=== PATIENT | female | born 1955 | race Caucasian/White ===

== ENCOUNTER 2020-12-27 14:03 | Outpatient (REF) | payer BC, SELFPAY ==
--- NOTE | 2020-12-27 | MM_ITS ---
EXAMINATION: MM SCREENING DIGITAL BREAST TOMOSYNTHESIS, BILATERAL CLINICAL INFORMATION: Screening. Asymptomatic. The lifetime risk of breast cancer based on the Tyrer-Cuzick Model is 5%. COMPARISON: Mammography: 12/22/2019, 12/16/2018, 12/10/2017 TECHNIQUE: Digital breast tomosynthesis is performed in both the craniocaudal and mediolateral oblique views along with computer-aided detection (CAD). Synthesized 2D images are generated from the tomosynthesis. FINDINGS: There are scattered areas of fibroglandular density (ACR BI-RADS breast composition Category b). Breast tissue borders on heterogeneously dense in the anterior breasts. Parenchymal pattern is similar to prior studies. There is no developing density or interval mass or architectural abnormality. No abnormal calcifications. Left axillary node stable. Small intramammary node posterior upper outer right breast stable. Skin contours are smooth. MM/MM tomosynthesis screening BI IMPRESSION: No significant changes from prior exams. ASSESSMENT: BI-RADS 2: Benign RECOMMENDATION: Routine annual mammography screening. This patient's information was entered into a reminder system with a target due date for their next mammogram.
== END 2020-12-27 14:04 | disposition home or self-care (01) ==
LOC: HO.MAMMO 14:03
PROVIDERS: PCP Internal Medicine; Visit Provider Internal Medicine
DX: Z12.31 Encounter for screening mammogram for malignant neoplasm of breast (principal)
CPT/HCPCS: 77063; 77067

== ENCOUNTER 2022-03-01 11:44 | Outpatient (REF) | payer MEDICARE, OTHER, SELFPAY ==
--- NOTE | ~2022-03-01 | MM_ITS ---
EXAMINATION: MM SCREENING DIGITAL BREAST TOMOSYNTHESIS, BILATERAL CLINICAL INFORMATION: Screening. Asymptomatic. The lifetime risk of breast cancer based on the Tyrer-Cuzick Model is 4.3%. COMPARISON: Mammography: December 27, 2020 and studies dating back to July 28, 2012 TECHNIQUE: Digital breast tomosynthesis is performed in both the craniocaudal and mediolateral oblique views along with computer-aided detection (CAD). Synthesized 2D images are generated from the tomosynthesis. FINDINGS: There are scattered areas of fibroglandular density (ACR BI-RADS breast composition Category b). There are no significant masses, abnormal calcifications, or other abnormalities. MM/MM tomosynthesis screening BI IMPRESSION: There are no significant changes from prior study. ASSESSMENT: BI-RADS 1: Negative RECOMMENDATION: Routine annual mammography screening. This patient's information was entered into a reminder system with a target due date for their next mammogram.
== END 2022-03-01 11:45 | disposition home or self-care (01) ==
LOC: HO.MAMMO 11:44
PROVIDERS: PCP Internal Medicine; Visit Provider Nurse Practitioner Adult Health
DX: Z12.31 Encounter for screening mammogram for malignant neoplasm of breast (principal)
CPT/HCPCS: 77063; 77067

== ENCOUNTER 2023-03-15 12:28 | Outpatient (REF) | payer MEDICARE, OTHER, SELFPAY ==
--- NOTE | ~2023-03-15 | MM_ITS ---
EXAMINATION: MM SCREENING DIGITAL BREAST TOMOSYNTHESIS, BILATERAL CLINICAL INFORMATION: Screening. Asymptomatic. The lifetime risk of breast cancer based on the Tyrer-Cuzick Model is 4.1%. COMPARISON: Mammography: 03/01/2022 and studies dating back to 07/28/2012. . TECHNIQUE: Digital breast tomosynthesis is performed in both the craniocaudal and mediolateral oblique views along with computer-aided detection (CAD). Synthesized 2D images are generated from the tomosynthesis. FINDINGS: There are scattered areas of fibroglandular density (ACR BI-RADS breast composition Category b). There is a stable parenchymal pattern of the right breast with no new abnormal dominant masses or suspicious grouping of microcalcifications identified. Within the anterior aspect of the left breast on mediolateral oblique projection there is an asymmetric density for which spot compression film is recommended. I do not see a correlate craniocaudal view. MM/MM tomosynthesis screening BI IMPRESSION: Left breast density for further evaluation. ASSESSMENT: BI-RADS 0: Incomplete - Need Additional Imaging Evaluation. RECOMMENDATION: 1. Additional views of the left breast. 2. Targeted ultrasound if warranted after review of the additional views. 3. Radiology department staff will contact the patient for additional imaging. This patient's information was entered into a reminder system with a target due date for their next mammogram.
== END 2023-03-15 12:29 | disposition home or self-care (01) ==
LOC: HO.MAMMO 12:28
PROVIDERS: PCP Nurse Practitioner Family; Visit Provider Nurse Practitioner Family
DX: Z12.31 Encounter for screening mammogram for malignant neoplasm of breast (principal)
CPT/HCPCS: 77063; 77067

== ENCOUNTER 2023-03-26 07:53 | Outpatient (REF) | payer MEDICARE, OTHER, SELFPAY ==
--- NOTE | ~2023-03-26 | MM_ITS ---
EXAMINATION: MM DIAGNOSTIC DIGITAL BREAST TOMOSYNTHESIS, LEFT CLINICAL INFORMATION: Recall from screening for parenchymal asymmetry anterior left breast on MLO view, suspected summation artifact. COMPARISON: Prior mammography exams including most recent 03/15/2023. TECHNIQUE: Digital breast tomosynthesis is performed. 2D images are generated from the tomosynthesis. The following views are obtained: Spot MLO, standard ML. FINDINGS: There are scattered areas of fibroglandular density (ACR BI-RADS breast composition Category b). The additional views show fibroglandular densities similar to prior studies. There is no developing density or interval mass or architectural abnormality. No significant changes. Results are discussed with the patient at time of visit. MM/MM tomosynthesis added views L IMPRESSION: Additional views show no significant changes from prior studies. ASSESSMENT: BI-RADS 1: Negative RECOMMENDATION: Routine annual mammography screening. This patient's information was entered into a reminder system with a target due date for their next mammogram.
== END 2023-03-26 07:54 | disposition home or self-care (01) ==
LOC: HO.MAMMO 07:53
PROVIDERS: Visit Provider Nurse Practitioner Family
DX: R92.8 Other abnormal and inconclusive findings on diagnostic imaging of breast (principal); R92.2 Inconclusive mammogram
CPT/HCPCS: 77061; 77065

== ENCOUNTER 2024-03-30 13:17 | Outpatient (REF) | payer MEDICARE, OTHER, SELFPAY ==
--- NOTE | ~2024-03-30 | MM_ITS ---
EXAMINATION: MM SCREENING DIGITAL BREAST TOMOSYNTHESIS, BILATERAL CLINICAL INFORMATION: Screening. Asymptomatic. COMPARISON: Mammography: This study is compared with prior exams dating back to 2019. TECHNIQUE: Digital breast tomosynthesis is performed in both the craniocaudal and mediolateral oblique views along with computer-aided detection (CAD). Synthesized 2D images are generated from the tomosynthesis. FINDINGS: There are scattered areas of fibroglandular density (ACR BI-RADS breast composition Category b). There are no significant masses, abnormal calcifications, or other abnormalities. Few, bilateral benign calcifications are present. MM/MM tomosynthesis screening BI IMPRESSION: No mammographic evidence of malignancy. ASSESSMENT: BI-RADS BI-RADS 2 - Benign Findings RECOMMENDATION: Routine annual mammography screening. 1 year F/U This examination should not preclude the clinical evaluation of a suspicious palpable abnormality. This patient's information was entered into a reminder system with a target due date for their next mammogram.
== END 2024-03-30 13:18 | disposition home or self-care (01) ==
LOC: HO.MAMMO 13:17
PROVIDERS: PCP Nurse Practitioner Family; Visit Provider Nurse Practitioner Family
DX: Z12.31 Encounter for screening mammogram for malignant neoplasm of breast (principal)
CPT/HCPCS: 77063; 77067

== ENCOUNTER → 2024-03-30 13:30 | Outpatient (BNV) | payer MEDICARE, OTHER, SELFPAY | PROVIDERS: PCP Nurse Practitioner Family; Visit Provider Radiology Diagnostic Radiology | DX: Z12.31 Encounter for screening mammogram for malignant neoplasm of breast (principal) | CPT/HCPCS: 77063; 77067 ==

== ENCOUNTER 2025-04-20 14:11 | Outpatient (REF) | payer MEDICARE, OTHER, SELFPAY ==
--- OUTSIDE RECORDS SUMMARY | 2025-04-20 15:39 | XMS_ITS | Data Portability ---
Author Organization [place] - [facility], [facility] Address [address] [place] [address] Assessment Encounter Date Assessment Date Assessment LastModified by Organization Details LastModified Time 01/20/2025 01/20/2025 69-year-old female returns today in follow-up status post left carpal tunnel release and left first CMC arthroplasty with EPB transfer on January 07, 2025 who is overall doing well. Sutures removed Steri-Strips were reapplied. She will transition to a thumb spica cast, short a short with IP joint free with MP joint slightly flexed. Follow-up in 4 weeks time for recheck and likely transition to occupational therapy and removal of K wire. Not available 01/20/2025 15:15:00 02/18/2025 02/18/2025 69-year-old female returns today in follow-up status post left carpal tunnel release and left first CMC arthroplasty with EPB transfer on January 07, 2025 who is overall doing well. Her pin is removed today without difficulty and light dressing applied thereafter. She will transition occupational therapy for custom molded thumb spica orthosis, range of motion only for the first 2 weeks then incorporate progressive strengthening. Follow-up in weeks time as previously arranged, sooner if required Not available 02/18/2025 13:37:52 Plan of Treatment Reminders Order Date Submit Date Provider Last Modified By Organization Details Last Modified Time Details Appointments None recorded. Lab None recorded. Referral occupationa l therapist referral - Diagnosis:s tatus post left carpal tunnel release and left first CMC arthroplast y with EPB transfer on January 075Custom molded orthosis: noneTreatme nt: continue current treatment until plateau 2024 025 [email or web address] Not available 09:40:09 occupationa l therapist referral - custom spica orthosis ROM START IN 2 WEEKS INCORPORATE STRENTHENIN G 2024 025 [email or web address] Not available 10:21:57 Procedures None recorded. Surgeries arthroplast y, interpositi on/intercar pal/CMC joints (SURG) 2023 025 [email or web address] Not available 08:34:48 Imaging electromyog misael + nerve conduction study - Diagnosis: LUE EVALUATE BRACHIAL PLEXUS CARPAL AND CUBITAL TUNNELS AND CERVICAL RADICULOPAT HY, please schedule with or Dr.Marinez- Abreu 2023 024 [email or web address] [facility] [address] [place] [address], [place], [address], 4 15:13:39 Medication Orders None recorded. Patient TargetsNo targets recorded. Patient Instructions Encounter Date Encounter Id Patient Instructions Last Modified By Organization Details Last Modified Time 01/20/[id number] application of cast, thumb spica* - room 111 Right Shorty Short thumb spica cast- IPJ reff; MP slightly flexed Not available 01/20/2025 16:36:34 02/18/[id number] cast removal* - rm 115 cast off Not available 02/18/2025 14:02:42 Reason for Referral Occupational Therapist Refer ral for Osteoarthrosis of the carpometacarpal joint of the thumb custom spica orthosis ROM START IN 2 WEEKS INCORPORATE STRENTHENING Referring Physician: Ismael Gutierrez, Orthopedic Surgery, Encounter Date: 02/18/2025 Occupational Therapist Refer ral for Surgical follow-up Diagnosis:status post left carpal tunnel release and left first CMC arthroplasty with EPB transfer on January 075Custom molded orthosis: noneTreatment: continue current treatment until plateau Referring Physician: Tyron Aguirre, Orthopedic Surgery, Encounter Date: 03/31/2025 Problems Name Problem SNOMED Code Status Onset Date Resolution Date Notes Provider Name and Address Organization Details Recorded Time Osteoarthro sis of the carpometaca rpal joint of the thumb 76221503 Active 2024 Ismael Gutierrez PA-C [address], [place], [address], [facility] 5 12:12:48 Carpal tunnel syndrome of left wrist 7699584871823 02 Active 2024 Ismael Gutierrez PA-C [address], [place], [place], [address], [facility] 5 12:12:48 Problem Notes None recorded. Medical Equipment None Reported. Allergies Allergen ID Allergen Name Allergen Category Reaction Reaction Severity Criticality Documentation Date Start Date Code Code System Note Provider Name and Address Organization Details Recorded Time 921165 oxycodone hydrochlo ride medicatio n Not available Not available Not available 05/26/20242023 11710 RxNorm Not Available [facility] Medications Name Sig Start Date Stop Date Status Note LastModified by Organization Details LastModified Time amoxicillin 500 mg capsule TAKE 4 CAPSULES BY MOUTH PRIOR TO APPT active Not Available Not Available No t Available atorvastatin 40 mg tablet TAKE 1 TABLET BY MOUTH EVERYDAY AT BEDTIME active Not Available Not Available No t Available carvedilol 12.5 mg tablet TAKE 1/2 TABLET BY MOUTH TWICE A DAY active Not Available Not Available No t Available meloxicam 15 mg tablet TAKE 1 TABLET BY MOUTH EVERY DAY NEEDED FOR PAIN active Not Available Not Available No t Available oxycodone 5 mg tablet TAKE 1 TABLET BY MOUTH EVERY 4 HOURS NEEDED FOR 3 DAYS active Not Available Not Available No t Available Vitals Date Recorded Body height Body mass index (BMI) Body weight Provider Name and Address Organization Details Last Updated DateTime 09/30/2024 157.48 cm 31.1 kg/m2 44106.7 g RONNIE PURI [facility] 09/30/2024 16:12:02 Date Recorded Body height Body mass index (BMI) Body weight Provider Name and Address Organization Details Last Updated DateTime 01/20/2025 157.48 cm 31.1 kg/m2 31183.7 g YUNIER ELLIOTT [facility] 01/20/2025 14:46:25 Date Recorded Body height Body mass index (BMI) Body weight Provider Name and Address Organization Details Last Updated DateTime 02/18/2025 157.48 cm 31.1 kg/m2 69216.7 g García Davenportz [facility] 02/18/2025 13:13:42 Date Recorded Body height Body mass index (BMI) Body weight Provider Name and Address Organization Details Last Updated DateTime 03/31/2025 157.48 cm 31.1 kg/m2 48224.7 g RONNIE GRANADOSO [facility] 03/31/2025 15:40:37 Social History None recorded. Functional Status None recorded. Mental Status None recorded. Family History Nothing Reported. Medical History No medical history recorded. Gynecological HistoryNo gynecological history recorded. Obstetrics History GPAL:G 0 P 0 0 0 0 Past Encounters Encounter ID Performer Location Encounter Start Date Encounter Closed Date Diagnosis/Indication Diagnosis SNOMED-CT Code Diagnosis ICD10 Code Diagnosis Note [id number] Tyron Aguirre MD [facility] [address] [place] [place] [address] 09/30/2024 16:02:35 10/20/2024 10:12:29 Osteoarthrosis of the carpometacarpal joint of the thumb 15518824 M18.12 Carpal marisa angelika syndrome of left wrist 7106210857 10939 G56.02 [id number] JONNA Hernandez [facility] [address] [place] [address] 01/20/2025 14:30:02 02/05/2025 08:12:03 Osteoarthrosis of the carpometacarpal joint of the thumb 57524152 M18.12 Carpal marisa angelika syndrome of left wrist 6058126630 03514 G56.02 [id number] JONNA Hernandez - [facility] [address] [place] [address] 02/18/2025 13:05:56 03/04/2025 10:21:56 Osteoarthrosis of the carpometacarpal joint of the thumb 75448748 M18.12 Carpal marisa angelika syndrome of left wrist 0449074450 62574 G56.02 [id number] MD JOHN N[facility] [address] [place] [address] 03/31/2025 15:37:37 04/12/2025 08:55:23 Surgical follow-up 321027060 Z48.89 Arthritis of first carpometacarpal joint of left hand 0681143237 530353 M18.12 Health Concerns Section Related Observation LastModified by Organization Detai ls LastModified Time None Recorded Concern Status LastModified by Organization Details LastModified Time None Recorded Advance Directives Directive None Recorded Payers Encounter Date Sequence Insurance Name Policy Number Policy Adams Covered Member ID Adams Member ID Guarantor Name 09/30/2024 2 [facility] - PLAN 1 (MEDICARE SUPPLEMENT) [id number] Lisy M M Peter [id number] Lisy M Peter 09/30/2024 1 [place] [employer] Lisy M Peter [id number] Lisy M Peter 01/20/2025 2 [facility] - PLAN 1 (MEDICARE SUPPLEMENT) [id number] Lisy M M Peter [id number] Lisy M Peter 01/20/2025 1 [place] [employer] Lisy M Peter [id number] Lisy M Peter 02/18/2025 2 [facility] - PLAN 1 (MEDICARE SUPPLEMENT) [id number] Lisy M M Peter [id number] Lisy M Peter 02/18/2025 1 [place] Lisy M Peter [id number] Lisy M Peter 03/31/2025 2 [facility] - PLAN 1 (MEDICARE SUPPLEMENT) [id number] Lisy M M Peter [id number] Lisy M Peter 03/31/2025 1 [place] [employer] Lisy M Peter [id number] Lisy M Peter Notes Date Note Type Note Provider Name and Address Organization Details Recorded Time 09/30/2024 text/html Diagnosis: 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 She reports minimal improvement with corticosteroid injection. She is now describing a 10/10 pain in the base of her thumb.she also describes numbness and tingling which awaken her from sleep at night. Past family, medical, social history and review of systems has been reviewed, updated and is located in the patient? s chart. Examination: Healthy appearing patient in no apparent distress. Alert and oriented. HEENT: Normocephalic and atraumatic. Heart: Regular rate and rhythm. Lungs: Clear to auscultation bilaterally. Abdomen: Soft and nontender. Neurovascular exam: carpal tunnel compression test and Phalen's over negative bilaterally. Extremities: Symmetric range of motion bilateral wrists and digits. Provocative tests of the right wrist reveals no stability. Provocative testing left wrist reveals a positive first CMC grind test. No atrophy in either upper extremity. Brisk capillary refill in all digits I reviewed radiographs obtained a previous visit. These confirm first CMC arthritis with nearly 50? ? ? of hyperextension of the MCP joint. Plan: The patient and I discussed her situation at length. She would like to proceed with a first CMC arthroplasty with tendon transfer. We discussed the nature of that surgery is potential risks including infection, injury to blood vessels, tendons, nerves, failure of the procedure and stiffness of the thumb. We also discussed the hyperextension of her MCP joint and the need for stabilization. She has opted for a soft tissue procedure. All her questions were answered. She has consented to the procedure. we will obtain an EMG/NCS of her left upper extremity to rule out the presence of carpal tunnel syndrome before proceeding with surgery. Tyron Aguirre MD [address] [place] [address] [address], [place], [address], [facility] 10/02/2024 19:43:55 01/20/2025 text/html I am seeing the patient today under the supervision of Dr. Aguirre who was available but who did not see the patient. Surgeon: Dr. AguirreProcedure: Left carpal tunnel release and left first CMC arthroplasty with EPB transferDate of procedure: January 07, 2025 HPI: 69-year-old female returns today in follow-up status post left carpal tunnel release and left first CMC arthroplasty with EPB transfer on January 07, 2025. Overall she is doing well. Reports her pain to be under control. No fevers chills or drainage reported. Ismael Gutierrez PA-C [address], [place], [address], [facility] 01/20/2025 15:15:12 02/18/2025 text/html I am seeing the patient today under the supervision of Dr. Aguirre who was available but who did not see the patient. Surgeon: Dr. AguirreProcedure: Left carpal tunnel release and left first CMC arthroplasty with EPB transferDate of procedure: January 07, 2025 HPI: 69-year-old female returns today in follow-up status post left carpal tunnel release and left first CMC arthroplasty with EPB transfer on January 07, 2025. She reports that her pain is improving. Denies any fevers chills or drainage. Returns today in follow-up Ismael Gutierrez PA-C [address], [place], [address], [facility] 02/18/2025 13:38:34 03/31/2025 text/html Diagnosis: Statu s post left carpal tunnel release, left first CMC arthroplasty with FCR tendon transfer, and extensor pollicis brevis transfer The patient is very pleased with the results of her surgery. She finds her thumb stiff and would like to see if she can improve her motion. Past family, medical, social history and review of systems has been reviewed, updated and is located in the patient? s chart. Examination: Healthy appearing patient in no apparent distress. Alert and oriented. Thumb is well aligned. Negative first CMC grind test. Marked stiffness of the thumb. No atrophy in either upper extremity. Brisk capillary refill in all digits Plan: The patient and I discussed her situation at length. We will continue her therapy to maximize her motion. I offered her a follow-up appointment but we agreed that she would prefer to follow-up at her discretion. Tyron Aguirre MD [address], [place], [address], [facility] 03/31/2025 17:00:35 OBGyn Episode No OBEpisode recorded.
== END 2025-04-20 14:12 | disposition home or self-care (01) ==
LOC: HO.MAMMO 14:11
PROVIDERS: PCP Nurse Practitioner Family; Visit Provider Nurse Practitioner Family
DX: Z12.31 Encounter for screening mammogram for malignant neoplasm of breast (principal)
CPT/HCPCS: 77063; 77067

== ENCOUNTER → 2025-04-20 14:30 | Outpatient (BNV) | payer MEDICARE, OTHER, SELFPAY | PROVIDERS: PCP Nurse Practitioner Family; Visit Provider Internal Medicine | DX: Z12.31 Encounter for screening mammogram for malignant neoplasm of breast (principal) | CPT/HCPCS: 77063; 77067 ==